=== PATIENT | female | born 1975 ===

== ENCOUNTER 2021-05-06 07:46 | Day surgery (SDC) | payer OTHER ==
--- NOTE | 2021-05-06 07:37 | PCM.PREANE ---
Preanesthetic Assessment - Procedure Proposed Procedure: Total Vaginal hysterectomy with bilateral salpingectomy with anterior repair, possible posterior repair, possible unilateral/bilateral oopherectomy. - Anesthesia/Transfusion/Family Hx Anesthesia History: Prior Anesthesia Without Reaction Family History of Anesthesia Reaction: No Transfusion History: No Prior Transfusion(s) Intubation History: Unknown - Review of Systems General: No Symptoms Pulmonary: No Symptoms (Former smoker: quit 15 yrs ago/ETOH: rarely.) Cardiovascular: No Symptoms Gastrointestinal: No Symptoms Neurological: No Symptoms Other: Reports: None - Physical Assessment NPO Status Date: 05/05/21 NPO Status Time: 20:00 Vital Signs: HR: 80 Sat: 98% Temp: 98.5 B/P: 134/84 Resp: 16 Height: 1.6 m Weight: 69 kg ASA Class: 2 Mental Status: Alert & Oriented x3 Airway Class: Mallampati = 2 Dentition: Reports: Normal Dentition, [place](s), Caries Thyro-Mental Finger Breadths: 3 Mouth Opening Finger Breadths: 3 ROM/Head Extension: Full Lungs: Clear to Auscultation, Normal Respiratory Effort Cardiovascular: Regular Rate, Regular Rhythm, No Murmurs - Lab Values: Above labs reviewed and noted and within acceptable ranges to proceed with scheduled procedure. - Imaging/EKG Impressions: EKG: SR luis e=[id number], borderline Right axis deviation - Allergies Allergies/Adverse Reactions: Allergies Allergy/AdvReac Type Severity Reaction Status Date / Time nickel Allergy Cannot Verified 05/05/21 15:15 Remember - Anesthesia Plan Pre-Op Medication Ordered: None - Acknowledgements Anesthesia Type Planned: General Anesthesia Pt an Appropriate Candidate for the Planned Anesthesia: Yes Alternatives and Risks of Anesthesia Discussed w Pt/Guardian: Yes Pt/Guardian Understands and Agrees with Anesthesia Plan: Yes PreAnesthesia Questionnaire - HOME MEDS Home Medications: Home Meds . [No Known Home Meds] 05/05/21 [History] - CURRENT (IN HOUSE) MEDS Current Meds: Current Medications Lactated Ringer's (Ringers, Lactated) 1,000 mls @ 125 mls/hr IV ASDIRECTED MAN Stop: 05/06/21 23:00 Lidocaine/Sodium Bicarbonate (Lidocaine 1%/Sod Bicarbonate In Ns 8.4% 1 Ml Syringe) 0.25 ml IDERM ONETIME PRN PRN Reason: Prior to IV Start Stop: 05/06/21 18:00 Sodium Chloride (Sodium Chloride 0.9% 10 Ml Syringe) 10 ml FLUSH 0900,2100 MAN Stop: 05/06/21 18:00
[~2021-05-06 07:46] MED LIST: Lactated Ringers 1,000 ML IV SCH; Lidocaine 1% with EPINEPHrine 1:100,000 20 ML MDV ONE; Lidocaine 1%/Sod Bicarbonate in NS 8.4% 1 ML Syringe IDERM PRN; Sodium Chloride 0.9% 10 ML Syringe FLUSH SCH; Sodium Chloride 0.9% 50 ML SDV ONE
[2021-05-06] MEDS ORDERED: ePHEDrine 50 MG/ML SDV ONE (08:03)
[2021-05-06] MEDS ORDERED: Ketorolac 30 MG/ML SDV ONE (08:03)
[2021-05-06] MEDS ORDERED: HYDROmorphone 0.5 MG/0.5 ML Syringe ONE (08:03)
[2021-05-06] MEDS ORDERED: Rocuronium 50 MG/5 ML Vial ONE (08:03)
[2021-05-06] MEDS ORDERED: Ondansetron 4 MG/2 ML SDV ONE (08:03)
[2021-05-06] MEDS ORDERED: ceFAZolin 1 GM Vial ONE (08:03)
[2021-05-06] MEDS ORDERED: Dexamethasone 4 MG/ML 5 ML MDV ONE (08:03)
[2021-05-06] MEDS ORDERED: Lactated Ringers 2,000 ML ONE (08:03)
[2021-05-06] MEDS ORDERED: Propofol 200 MG/20 ML SDV ONE (08:03)
[2021-05-06] MEDS ORDERED: fentaNYL 250 MCG/5 ML SDV ONE (08:04)
[2021-05-06] MEDS ORDERED: Midazolam 1 MG/ML 2 ML SDV ONE (08:04)
[2021-05-06] MEDS ORDERED: Lactated Ringers 1,000 ML ONE (09:46)
[2021-05-06] MEDS ORDERED: Midazolam 1 MG/ML 2 ML SDV IVPUSH PRN (09:47)
[2021-05-06] MEDS ORDERED: fentaNYL 100 MCG/2 ML SDV IVPUSH PRN (09:47)
[2021-05-06] MEDS ORDERED: Ondansetron 4 MG/2 ML SDV IVPUSH PRN (09:47)
[2021-05-06] MEDS ORDERED: diphenhydrAMINE 50 MG/ML SDV IVPUSH PRN (09:47)
[2021-05-06] MEDS ORDERED: HYDROmorphone 0.5 MG/0.5 ML Syringe IVPUSH PRN (09:47)
[2021-05-06] MEDS ORDERED: ePHEDrine 50 MG/ML SDV IVPUSH PRN (09:47)
--- NOTE | 2021-05-06 10:35 | PCM.OPNOTE ---
- General Post-Op/Procedure Note Date of Surgery/Procedure: 05/06/21 Operative Procedure(s): Transvaginal hysterectomy with bilateral salpingectomy Findings: Grade 3 uterine prolapse with cervix coming to the vaginal introitus with suspected grade 2-3 cystocele on initial exam. Grossly normal-appearing uterus and bilateral fallopian tubes. Normal-appearing left ovary. Right ovary with 4 to 5 cm ovarian cyst present. This was left intact. Pre Op Diagnosis: Heavy menstrual bleeding with irregular menstrual cycle, dysmenorrhea, uterine prolapse and cystocele Post-Op Diagnosis: Same Anesthesia Technique: General ET Tube Primary Surgeon: Andre Willard Anesthesia Provider: Nancy Pearce Strip Feeder: Tay Underwood Reason Strip Feeder Was Necessary: Patient safety and reduction of morbidity and mortality Role of Strip Feeder: Retraction for visualization Pathology: Uterus, cervix and bilateral fallopian tubes Fluid Replacement, Intraop: 1,500 Output, Urine Amount: 0 (Voided prior to procedure) EBL in mLs: 100 Complications: None Condition: Good Free Text/Narrative:: Procedure in detail: The patient was seen in the preoperative holding area and risks, benefits, indications, and alternatives of the procedure were reviewed with the patient and she desired to proceed with a trans vaginal hysterectomy, bilateral salpingectomy, possible anterior repair, possible posterior repair, possible unilateral or bilateral oophorectomy and possible total abdominal hysterectomy. Consents were reviewed. The patient was taken to the operating room and given general anesthesia with an endotracheal tube that was placed without difficulty. The patient was placed in dorsal lithotomy position using yellowfin stirrups. She was prepped and draped in normal sterile fashion. A weighted speculum was placed into the vagina and the anterior lip of the cervix was grasped with the single-tooth tenaculum. A double-tooth tenaculum was used to grasp the entirety of the cervix the single- tooth tenaculum was removed. The cervix was injected circumferentially with 0.25% lidocaine with epinephrine. The cervix was circumferentially incised with a scalpel. The bladder was dissected off the pubovesical cervical fascia anteriorly with Garibay scissors. The posterior cul-de-sac was entered sharply without difficulty using Garibay scissors. An Enseal vessel sealing device was placed over the uterosacral ligaments on the patient's left side. These were cauterized and ligated with the Enseal vessel sealing device. This was repeated on the patient's right side. Hemostasis was assured. The anterior cul-de-sac was then able to be entered using sharp dissection with Garibay scissors. The cardinal ligaments were then clamped on both sides with Enseal vessel sealing device, cauterized and ligated with the device. The uterine arteries and broad ligament were then serially clamped with Enseal vessel sealing device, ca uterized and ligated with the device on both sides. The cornua of the uterus was delivered and the right round ligament and fallopian tube was clamped with a Chelo clamp and the tissue was incised. This was repeated on the patient's left side and the uterus and cervix was able to be delivered. The round ligament pedicles were then cauterized using the Enseal vessel sealing device. The right fallopian tube was then visualized and grasped using a Dutton clamp and excised using Enseal vessel sealing device. This was repeated on the left side with grasping of the fallopian tube with a Dutton clamp and excised using Enseal vessel sealing device. The posterior vaginal cuff was closed with running locked sutures of 0-Monocryl. The right ovary was visualized to have a 4 to 5 cm ovarian cyst that appeared to be normal in nature and was left in place. The anterior cul-de-sac was inspected for cystocele and was noted to have minimal cystocele with majority of the tissue at this time felt to be urethrocele. Because there was minimal cystocele at this time it was determined that anterior pair was not needed and there was minimal rectocele. The case was felt to be necessary to proceed with anterior and posterior repair and the surgery was completed at this time. The vaginal cuff was closed with running locked stitches in a horizontal fashion with 0-Monocryl. All instruments were removed from the vagina. The patient was awoken and taken to the PACU for recovery in stable condition. Sponge, lap, needle, and instrument counts were correct x 2. Andre Willard MD 10:42 AM 05/06/2021
--- NOTE | 2021-05-06 10:43 | PCM.POSTAN ---
POST ANESTHESIA ASSESSMENT - MENTAL STATUS Mental Status: Alert - VITAL SIGNS Vital Signs: Last Vital Signs Temp 97.4 05/06/21 1037 Pulse 93 05/06/21 1037 Resp 11 05/06/21 1037 BP 122/74 05/06/21 1037 Pulse Ox 100% 05/06/21 1037 - RESPIRATORY Respiratory Status: Respiratory Rate WNL, Airway Patent, O2 Saturation Stable, Supplemental Oxygen - CARDIOVASCULAR CV Status: Pulse Rate WNL, Blood Pressure Stable - GASTROINTESTINAL GI Status: No Symptoms - POST OP HYDRATION Hydration Status: Adequate & Stable
--- NOTE | 2021-05-06 12:03 | PCM48HPAN ---
Post Anesthesia Note - EVALUATION WITHIN 48HRS OF ANESTHETIC Vital Signs in Normal Range: Yes Patient Participated in Evaluation: Yes Respiratory Function Stable: Yes Airway Patent: Yes Cardiovascular Function Stable: Yes Hydration Status Stable: Yes Pain Control Satisfactory: Yes Nausea and Vomiting Control Satisfactory: Yes Mental Status Recovered: Yes Vital Signs: Last Vital Signs Temp 36.3 C 05/06/21 10:37 Pulse 80 05/06/21 07:50 Resp 13 05/06/21 11:15 BP 121/77 05/06/21 11:15 Pulse Ox 100 05/06/21 11:15
[2021-05-06] MEDS ORDERED: Acetaminophen/oxyCODONE 325-5 MG Tab PO ONE (12:29)
== END 2021-05-06 13:05 | disposition home or self-care (01) ==
LOC: JD.SDS 07:46
PROVIDERS: ATTEND Obstetrics & Gynecology
DX: N80.0 Endometriosis of uterus (principal); N81.4 Uterovaginal prolapse, unspecified; N83.8 Other noninflammatory disorders of ovary, fallopian tube and broad ligament; Z91.048 Other nonmedicinal substance allergy status; Z87.891 Personal history of nicotine dependence
CPT/HCPCS: 36415; 58262; 81003; 81025; 86850; 86900; 86901; A9270; J0690; J1100; J1170; J1885; J2250; J2405; J2704; J2710; J3010; J7120; 00944